=== PATIENT | male | born 1960 | race Caucasian/White ===

== ENCOUNTER 2018-04-01 17:50 | Inpatient (IN) ==
[2018-04-01] MEDS ORDERED: Sod Chloride 0.9% Inj 1,000 ML IV.SIG ONE (18:17)
[2018-04-01] MEDS ORDERED: Morphine Inj 4 MG/ML Vial IV.PUSH ONE ×2 (18:17→21:06)
--- NOTE | 2018-04-01 18:25 | ED ---
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 Symptoms started 2 days ago. He describes it as a generalized sharp pain which is constant, some decreased appetite. He reports that today he had an episode of hematuria. He denies flank pain or back pain. He denies any diarrhea. He reports that he had one small bowel movement today. He has not passed gas today. Symptoms are moderate with no obvious aggravating or relieving factors. His primary care physician is Dr. Foss. He has no other complaints at this time. Related Data Home Medications Medication Instructions Recorded Confirmed multivitamin 1 tab PO DAILY 04/01/18 04/01/18 Allergies Allergy/AdvReac Type Severity Reaction Status Date / Time No Known Allergies Allergy Verified 04/01/18 18:01 Review of Systems ROS: all other systems reviewed are negative [facility] Medical History Medical History No significant medical problems (Acute) Surgical History Surgical History H/O splenectomy (Acute) Hx of cholecystectomy (Acute) Social History Social History Substance History: No History of Abuse Second Hand Smoke Exposure: No Smoking Status: Never smoker How Often Do You Have a Drink Containing Alcohol: Monthly or less Recent Travel in [facility] within the Last 8 Weeks: No Recent Out of Country Travel within the Last 8 Weeks: No Immunization History Tetanus Immunization: >5 Years Exam Narrative Exam Narrative: GENERAL: Well-developed well-nourished male who appears uncomfortable on initial examination. SKIN: Warm and dry. Midline abdominal surgical scars noted. HEAD: Atraumatic. Normocephalic. EYES: Pupils equal and round. No scleral icterus. No injection or drainage. ENT: No nasal bleeding or discharge. Mucous membranes pink and moist. NECK: Trachea midline. No JVD. CARDIOVASCULAR: Regular rate and rhythm. No murmur appreciated. RESPIRATORY: No accessory muscle use. Clear to auscultation. Breath sounds equal bilaterally. GASTROINTESTINAL: Abdomen soft, diffuse mild tenderness to palpation no guarding. Bowel sounds are present in all 4 quadrants. There is no CVA tenderness. MUSCULOSKELETAL: No obvious deformities. No clubbing. No cyanosis. No edema. NEUROLOGICAL: Awake and alert. No obvious cranial nerve deficits. Motor grossly within normal limits. Normal speech. Course Initial Documented Vital Signs Temperature 98.4 F 04/01/18 17:58 Pulse Rate 91 H 04/01/18 17:58 Respiratory Rate 16 04/01/18 17:58 Blood Pressure 111/77 04/01/18 17:58 Pulse Oximetry 98 04/01/18 17:58 Last Documented Vital Signs Temperature 98.4 F 04/01/18 17:58 Pulse Rate 91 H 04/01/18 17:58 Respiratory Rate 16 04/01/18 18:26 Blood Pressure 111/77 04/01/18 17:58 Pulse Oximetry 98 04/01/18 17:58 Medical Decision Making AZALIA Attestation AZALIA supervised visit: Yes Attestation: The history, exam, and medical decision-making in the associated mid-level provider note were completed with my assistance. I reviewed and agree with the findings presented. I attest that I had a [id number] encounter with the patient on the same day, and personally performed and documented my assessment and findings in the medical record. *My assessment and Findings: 57-year-old man, history of major abdominal surgery and bowel obstruction the past, here with abdominal pain and distention ongoing for the past couple days, decreased appetite, no vomiting here. Looks overall well. CT scan confirms bowel obstruction. Recommend sips and chips, IV fluids, defer NG tube for now, may need if he does not rapidly improve. [facility] Narrative Medical decision making narrative: Patient was placed on ECG monitoring pulse oximetry. He was given IV fluids, morphine, Zofran. Lab work, CT abdomen and pelvis ordered. Lab work is been reviewed, reassuring. He does have a small bowel obstruction on imaging studies. He has had no vomiting during his hospital stay. he feels improved after the administration of IV analgesics and antiemetics. At this point time the plan would be to admit the patient to the hospitalist for further evaluation and treatment. Medical Screen Exam Complete: Yes Emergency Medical Condition: Yes Differential Diagnosis Differential Diagnosis: Small bowel obstruction, colitis, diverticulitis, gastroenteritis, pancreatitis, pyelonephritis, ureteral stone Lab Data Result diagrams: 04/01/18 18:00 04/01/18 18:00 Lab Results 04/01/18 04/01/18 04/01/18 Range/Units 18:00 18:00 18:00 WBC 8.6 (4.0-11.0) th/mm3 RBC 4.59 (4.50-5.90) mil/mm3 Hgb 16.2 (13.0-17.0) gm/dL Hct 45.4 (39.0-51.0) % MCV 98.9 (80.0-100.0) fL MCH 35.2 H (27.0-34.0) pg MCHC 35.6 (32.0-36.0) % RDW 12.7 (11.6-17.2) % Plt Count 321 (150-450) th/mm3 MPV 8.0 (7.0-11.0) fL Neut % (Auto) 64.0 (16.0-70.0) % Lymph % (Auto) 22.2 (9.0-44.0) % [place] % (Auto) 12.7 H (0.0-8.0) % Eos % (Auto) 0.6 (0.0-4.0) % Baso % (Auto) 0.5 (0.0-2.0) % Neut # (Auto) 5.5 (1.8-7.7) th/mm3 Lymph # (Auto) 1.9 (1.0-4.8) th/mm3 [place] # (Auto) 1.1 H (0.0-0.9) th/mm3 Eos # (Auto) 0.1 (0.0-0.4) th/mm3 Baso # (Auto) 0.0 (0.0-0.2) th/mm3 WBC Differential . Differential Comment Auto diff final PT 10.8 (9.8-11.6) sec INR 1.1 Ratio APTT 25.2 (24.3-30.1) sec Sodium 139 (136-145) meq/L Potassium 3.8 (3.5-5.1) meq/L Chloride 107 (98-107) meq/L Carbon Dioxide 22.1 (21.0-32.0) meq/L Anion Gap 10 (5-15) meq/L BUN 16 (7-18) mg/dL Creatinine 1.01 (0.60-1.30) mg/dL Estimated GFR 76 L (>89) mL/min Random Glucose 113 H (74-106) mg/dL Calcium 8.7 (8.5-10.1) mg/dL Magnesium 1.8 (1.5-2.5) mg/dL Total Bilirubin 1.0 (0.2-1.0) mg/dL AST 18 (15-37) U/L ALT 45 (12-78) U/L Alkaline Phosphatase 49 (45-117) U/L Total Protein 8.0 (6.4-8.2) g/dL Albumin 3.9 (3.4-5.0) g/dL Lipase 78 (73-393) U/L Urine Color (Yellw/Straw) Urine Clarity (Clear) Urine pH (5.0-8.5) Ur Specific [place] (1.002-1.035) Urine Protein (Neg-Trace) mg/dL Urine Glucose (UA) (Negative) mg/dL Urine Ketones (Negative) mg/dL Urine Occult Blood (Negative) Urine Nitrate (Negative) Urine Bilirubin (Negative) Urine Urobilinogen (Less than 2) mg/dL Ur Leukocyte Esterase (Negative) Urine RBC (0-3) /hpf Urine WBC (0-5) /hpf Hyaline Casts (0-3) /lpf Urine Mucus (Occasional) /lpf Micro UA Comment Ur Microscopic Review Urine Culture Comments 04/01/18 Range/Units 19:35 WBC (4.0-11.0) th/mm3 RBC (4.50-5.90) mil/mm3 Hgb (13.0-17.0) gm/dL Hct (39.0-51.0) % MCV (80.0-100.0) fL MCH (27.0-34.0) pg MCHC (32.0-36.0) % RDW (11.6-17.2) % Plt Count (150-450) th/mm3 MPV (7.0-11.0) fL Neut % (Auto) (16.0-70.0) % Lymph % (Auto) (9.0-44.0) % [place] % (Auto) (0.0-8.0) % Eos % (Auto) (0.0-4.0) % Baso % (Auto) (0.0-2.0) % Neut # (Auto) (1.8-7.7) th/mm3 Lymph # (Auto) (1.0-4.8) th/mm3 [place] # (Auto) (0.0-0.9) th/mm3 Eos # (Auto) (0.0-0.4) th/mm3 Baso # (Auto) (0.0-0.2) th/mm3 WBC Differential Differential Comment PT (9.8-11.6) sec INR Ratio APTT (24.3-30.1) sec Sodium (136-145) meq/L Potassium (3.5-5.1) meq/L Chloride (98-107) meq/L Carbon Dioxide (21.0-32.0) meq/L Anion Gap (5-15) meq/L BUN (7-18) mg/dL Creatinine (0.60-1.30) mg/dL Estimated GFR (>89) mL/min Random Glucose (74-106) mg/dL Calcium (8.5-10.1) mg/dL Magnesium (1.5-2.5) mg/dL Total Bilirubin (0.2-1.0) mg/dL AST (15-37) U/L ALT (12-78) U/L Alkaline Phosphatase (45-117) U/L Total Protein (6.4-8.2) g/dL Albumin (3.4-5.0) g/dL Lipase (73-393) U/L Urine Color [place] (Yellw/Straw) Urine Clarity Hazy H (Clear) Urine pH 5.0 (5.0-8.5) Ur Specific [place] 1.034 (1.002-1.035) Urine Protein 30 H (Neg-Trace) mg/dL Urine Glucose (UA) Negative (Negative) mg/dL Urine Ketones 80 or greater H (Negative) mg/dL Urine Occult Blood Negative (Negative) Urine Nitrate Negative (Negative) Urine Bilirubin Negative (Negative) Urine Urobilinogen 4 or greater (Less than 2) mg/dL Ur Leukocyte Esterase Negative (Negative) Urine RBC 1 (0-3) /hpf Urine WBC 4 (0-5) /hpf Hyaline Casts 1 (0-3) /lpf Urine Mucus Many H (Occasional) /lpf Micro UA Comment Culture not ind Ur Microscopic Review Not Reportable Urine Culture Comments Culture not ind Imaging Data Radiologist's impression: Abdomen/Pelvis CT 04/01/18 18:18 CONCLUSION: 1. Distal small bowel obstruction just proximal to the terminal ileum without obstructing mass or lesion observed. No free air or free fluid. 2. Enlarged prostate. 3. Prior splenomegaly with numerous small splenules remaining. Discharge Plan Discharge Disposition Patient Disposition: 30 Still Patient Discharge Condition Condition: Stable Discharge Details Diagnosis: Small bowel obstruction Physicians Team ED Provider: Sukh Newberry ED Midlevel Provider: Zachary Mcgregor Primary Care Provider: Tom Foss Attending Provider: Yoana Mei Status ED Status: Admitted Patient
[2018-04-01 18:43] LABS: Baso % (Auto) 0.5 % (0.0-2.0); Eos # (Auto) 0.1 th/mm3 (0.0-0.4); Eos % (Auto) 0.6 % (0.0-4.0); Hematocrit 45.4 % (39.0-51.0); Hemoglobin 16.2 gm/dL (13.0-17.0); Lymph # (Auto) 1.9 th/mm3 (1.0-4.8); Lymph % (Auto) 22.2 % (9.0-44.0); Mean Corpuscular HGB Conc 35.6 % (32.0-36.0); Mean Corpuscular Hemoglobin 35.2 pg (27.0-34.0); Mean Corpuscular Volume 98.9 fL (80.0-100.0); Mono # (Auto) 1.1 th/mm3 (0.0-0.9); Mono % (Auto) 12.7 % (0.0-8.0); Neut # (Auto) 5.5 th/mm3 (1.8-7.7); Platelet Count 321 th/mm3 (150-450); Red Blood Count 4.59 mil/mm3 (4.50-5.90); Red Cell Distribution Width 12.7 % (11.6-17.2); White Blood Count 8.6 th/mm3 (4.0-11.0)
[2018-04-01 18:58] LABS: Activated Partial Thrombo Time 25.2 sec (24.3-30.1); INR 1.1 Ratio; Prothrombin Time 10.8 sec (9.8-11.6)
[2018-04-01 19:05] LABS: Albumin 3.9 g/dL (3.4-5.0); Anion Gap 10 meq/L (5-15); Aspartate Aminotransferase 18 U/L (15-37); Blood Urea Nitrogen 16 mg/dL (7-18); Calcium 8.7 mg/dL (8.5-10.1); Carbon Dioxide 22.1 meq/L (21.0-32.0); Chloride 107 meq/L (98-107); Glomerular Filtration Rate 76 mL/min (>89); Glucose,Random 113 mg/dL (74-106); Lipase 78 U/L (73-393); Magnesium 1.8 mg/dL (1.5-2.5); Potassium 3.8 meq/L (3.5-5.1); Sodium 139 meq/L (136-145)
[2018-04-01 19:06] LABS: Alanine Aminotransferase 45 U/L (12-78)
[2018-04-01 19:08] LABS: Alkaline Phosphatase 49 U/L (45-117)
[2018-04-01 19:57] LABS: Bilirubin,Urine Negative (Negative); Clarity,Urine Hazy (Clear); Color,Urine Amber (Yellw/Straw); Glucose,Urine (UA) Negative (Negative); Hyaline Casts,Urine 1 /lpf (0-3); Leukocyte Esterase,Urine Negative (Negative); Mucus,Urine Many /lpf (Occasional); Nitrite,Urine Negative (Negative); Specific Gravity,Urine 1.034 (1.002-1.035); Urobilinogen,Urine 4 or Greater mg/dL (Less than 2)
--- NOTE | 2018-04-01 20:03 | CT ---
EXAM DATE: 04/01/2018 7:36 PM EDT AGE/SEX: 57 years / Male INDICATIONS: Mid abdominal pain and hematuria for two days. CLINICAL DATA: This is the patient's initial encounter. Patient reports that signs and symptoms have been present for 2 days and indicates a pain score of 9/10. MEDICAL/SURGICAL HISTORY: . Small bowel obstruction. Splenectomy. Cholecystectomy. ORAL CONTRAST: No oral contrast ingested. RADIATION DOSE: 9.56 CTDI (mGy) [place] [facility] [place]. . TECHNIQUE: Multiple contiguous axial images were obtained through the abdomen and pelvis following b olus infusion of 70 ml Omnipaque 350 (iohexol) nonionic water-soluble contrast as a single exam dos e. No oral contrast ingested. Using automated exposure control and adjustment of the mA and/or kV ac cording to patient size, radiation dose was kept as low as reasonably achievable to obtain optimal di agnostic quality images. DICOM format image data is available electronically for review and comparis on. FINDINGS: Lower Lungs: Mild bibasilar atelectasis.. Liver: The liver has a homogeneous density without space-occupying lesion. Very mild prominence to th e intrahepatic biliary system particularly near the kimi hepatis is long-term stable. No gross bilia ry dilatation.. The gallbladder is surgically absent. Spleen: Multiple small splenules with a surgically absent spleen.. Pancreas: Unremarkable without mass or calcification. Kidneys: Normal in size and shape. A 2 mm nonobstructing stone involving the upper pole of the left kidney. No evidence of mass or hydronephrosis. Adrenal Glands: Unremarkable. Aorta: The aorta and proximal iliac vessels are grossly unremarkable without aneurysmal dilation. Bowel/Mesentery: Dilated loops of mid and distal small bowel observed. There is circumferential wall thickening involving several these loops as well. There is slow tapering of the distal ileum but pro ximal to the terminal ileum. No obstructing mass or lesion appreciated. The surrounding mesenteric fa t is clean. The appendix is normal by CT criteria. The colon is unremarkable with the exception of sc attered diverticula.. Abdominal Wall: Intact. Retroperitoneum: No evidence of adenopathy in the retrocrural, para-aortic, or deep pelvic regions. Bladder: No distention. No stones. Contours are smooth. Reproductive Organs: A grossly enlarged prostate gland which measures 6.7 cm in medial to lateral di mension.. Inguinal: The inguinal region is unremarkable without evidence of adenopathy. Bony Structures: Unremarkable. CONCLUSION: 1. Distal small bowel obstruction just proximal to the terminal ileum without obstructing mass or le carroll observed. No free air or free fluid. 2. Enlarged prostate. 3. Prior splenomegaly with numerous small splenules remaining. Electronically signed by: Nir Majano MD 04/01/2018 8:01 PM EDT
[2018-04-01] MEDS ORDERED: Sodium Chloride 0.9% 2 ML Flush PRN IV.FLUSH (21:35)
[2018-04-01] MEDS ORDERED: Morphine Sulfate Inj 2 MG/ML Vial IV.PUSH PRN (22:47)
--- NOTE | 2018-04-01 22:50 | P.HPIM ---
History of Present Illness Service: [facility] Primary Care Physician: Tom Foss DO Chief Complaint: Abdominal pain History of Present Illness: 57-year-old male with no medical history surgical history includes a splenectomy and a cholecystectomy and a small bowel obstruction in 2011 presented to the ED with complaints of abdominal pain. Patient states for the last 2 days he has had sharp, stabbing, constant abdominal pain throughout his whole abdomen with associated decreased appetite. He denies any associated nausea or vomiting or radiation pain. He states the pain is better with morphine. He states he had a very small bowel movement today but prior to today he has had liquid stools. He has had a bowel small bowel obstruction in the past that included intervention for lysis of adhesions. He also states he has not been drinking water lately and complains of very dark urine. Inpatient Certification: I certify that the inpatient services were ordered in accordance with Medicare regulations governing the order. This includes certification that hospital inpatient services are reasonable and necessary and in the case of services not specified as inpatient-only under 42 CFR 419.22(n), that they are appropriately provided as inpatient services in accordance to with the 2-midnight benchmark under 43 CFR 412.3(e) Estimated Total Length of Stay (Days): 2 Plans for Post Hospital Care: Home Review of Systems All other systems reviewed negative except as stated in HPI PMFSH - History History Provided By: Patient - Medical History Medical History: Medical History (Last Reviewed 04/01/18 @ 22:49 by ENID Brady) No significant medical problems - Surgical History Surgical History: Surgical History (Last Reviewed 04/01/18 @ 22:49 by ENID Brady) H/O splenectomy Hx of cholecystectomy - Family History Family History: Family History (Last Reviewed 04/01/18 @ 22:49 by ENID Brady) Other Family history normal - Social History I have reviewed the patient's Social History: Yes - Tobacco History Second Hand Smoke Exposure: No Smoking Status: Never smoker - Alcohol History How Often Do You Have a Drink Containing Alcohol: Monthly or less - Substance Use History Substance History: No History of Abuse - Travel History Recent Travel in the [place] Within the Last 8 Weeks: No Recent Travel Out of the Country Within the Last 8 Weeks: No - Immunization History Tetanus Immunization: >5 Years Medications and Allergies Active Medications: Active Medications Sodium Chloride (Ns Inj) 1,000 mls @ 100 mls/hr IV.CONT .Q10H BEV Ondansetron HCl (Zofran Inj) 4 mg IV.PUSH Q6H PRN PRN Reason: NAUSEA OR VOMITING Sodium Chloride (Ns Flush) 2 ml IV.FLUSH BID BEV Sodium Chloride (Ns Flush) 2 ml IV.FLUSH PRN PRN PRN Reason: FLUSH AFTER USING IV ACCESS Allergies Allergy/AdvReac Type Severity Reaction Status Date / Time No Known Allergies Allergy Verified 04/01/18 18:01 Home Medications Medication Instructions Recorded Confirmed Type multivitamin 1 tab PO DAILY 04/01/18 04/01/18 History Exam Vital signs: Vital Signs 04/01/18 17:58 04/01/18 18:26 Temperature 98.4 F Pulse Rate 91 H Respiratory Rate 16 16 Blood Pressure 111/77 Pulse Oximetry 98 Intake & Output 04/01/18 04/01/18 04/02/18 06:59 18:59 06:59 Intake Total 1000 / 1000 Balance 1000 / 1000 Weight 78.018 kg Intake: IV 1000 / 1000 NS Inj 1,000 ML @ Wide Open IV. 1000 / 1000 SIG BOLUS ONE Rx#:[id number] Narrative: GENERAL: This is a well-nourished, well-developed patient, in no apparent distress. SKIN: Warm, dry, intact, no ecchymosis or open lesions EYES: Pupils equal round and reactive, no scleral edema or drainage CARDIOVASCULAR: Regular rate and rhythm without murmurs, gallops, or rubs. RESPIRATORY: Clear to auscultation. Breath sounds equal bilaterally. No wheezes , rales, or rhonchi. GASTROINTESTINAL: Abdomen soft, umbilical tenderness, nondistended. hypo BS MUSCULOSKELETAL: Extremities without clubbing, cyanosis, or edema. NEURO: Alert & Oriented x4 to person, place, time, situation. Moves all ext x4 Results - Labs CBC & Chem 7: 04/01/18 18:00 04/01/18 18:00 Labs: Short CBC 04/01/18 Range/Units 18:00 WBC 8.6 (4.0-11.0) th/mm3 Hgb 16.2 (13.0-17.0) gm/dL Hct 45.4 (39.0-51.0) % Plt Count 321 (150-450) th/mm3 BMP 04/01/18 18:00 Sodium 139 Potassium 3.8 Chloride 107 Carbon Dioxide 22.1 BUN 16 Creatinine 1.01 Calcium 8.7 Liver Function 04/01/18 Range/Units 18:00 Total Bilirubin 1.0 (0.2-1.0) mg/dL AST 18 (15-37) U/L ALT 45 (12-78) U/L Alkaline Phosphatase 49 (45-117) U/L Albumin 3.9 (3.4-5.0) g/dL Urine 04/01/18 Range/Units 19:35 Urine Color [place] (Yellw/Straw) Urine Clarity Hazy H (Clear) Urine pH 5.0 (5.0-8.5) Ur Specific [place] 1.034 (1.002-1.035) Urine Protein 30 H (Neg-Trace) mg/dL Urine Glucose (UA) Negative (Negative) mg/dL - Imaging Impressions Abdomen/Pelvis CT 04/01/18 18:18 CONCLUSION: 1. Distal small bowel obstruction just proximal to the terminal ileum without obstructing mass or lesion observed. No free air or free fluid. 2. Enlarged prostate. 3. Prior splenomegaly with numerous small splenules remaining. Caprini VTE Risk Assessment Caprini VTE Risk Assessment: No/Low Risk (score <= 1) Caprini Risk Assessment Model: Point Value = 1 Point Value = 2 Point Value = 3 Point Value = 5 Age 41-60 Minor surgery BMI > 25 kg/m2 Swollen legs Varicose veins or History of unexplained or recurrent spontaneous Oral contraceptives or hormone replacement Sepsis (< 1 month) Serious lung disease, including pneumonia (< 1 month) Abnormal pulmonary function Acute myocardial infarction Congestive heart failure (< 1 month) History of inflammatory bowel disease Medical patient at bed rest Age 61-74 Arthroscopic surgery Major open surgery (> 45 min) Laparoscopic surgery (> 45 min) Malignancy Confined to bed (> 72 hours) Immobilizing plaster cast Central venous access Age >= 75 History of VTE Family history of VTE Factor V Leiden Prothrombin [id number] Lupus anticoagulant Anticardiolipin antibodies Elevated serum homocysteine Heparin-induced thrombocytopenia Other congenital or acquired thrombophilia Stroke (< 1 month) Elective arthroplasty Hip, pelvis, or leg fracture Acute spinal cord injury (< 1 month) Prophylaxis Regimen: Total Risk Factor Score Risk Level Prophylaxis Regimen 0-1 Low Early ambulation 2 Moderate Order ONE of the following: *Sequential Compression Device (SCD) *Heparin 5000 units SQ BID 3-4 Higher Order ONE of the following medications: *Heparin 5000 units SQ TID *Enoxaparin/Lovenox 40 mg SQ daily (WT < 150 kg, CrCl > 30 mL/min) *Enoxaparin/Lovenox 30 mg SQ daily (WT < 150 kg, CrCl > 10-29 mL/min) *Enoxaparin/Lovenox 30 mg SQ BID (WT < 150 kg, CrCl > 30 mL/min) AND/OR *Sequential Compression Device (SCD) 5 or more Highest Order ONE of the following medications: *Heparin 5000 units SQ TID (Preferred with Epidurals) *Enoxaparin/Lovenox 40 mg SQ daily (WT < 150 kg, CrCl > 30 mL/min) *Enoxaparin/Lovenox 30 mg SQ daily (WT < 150 kg, CrCl > 10-29 mL/min) *Enoxaparin/Lovenox 30 mg SQ BID (WT < 150 kg, CrCl > 30 mL/min) AND *Sequential Compression Device (SCD) Assessment and Plan - Plan 57-year-old male with no medical history surgical history includes a splenectomy and a cholecystectomy and a small bowel obstruction in 2011 presented to the ED with complaints of abdominal pain. Small bowel obstruction, acute Abdomen CT reviewed and shows a distal small bowel obstruction just proximal to the terminal ileum without mass, and enlarged prostate. -NPO, IVF -Consult general surgery for evaluation -Educated patient on fibrous diet and hydration -Pain management with IV morphine -Antiemetics as needed DVT Prophylaxis: SCDs Discussed Condition With: Patient, patient's and ER physician
[2018-04-02] MEDS: Sod Chloride 0.9% Inj 1,000 ML IV.CONT SCH ×3 (00:56→18:49)
[2018-04-02] MEDS: Morphine Inj 4 MG/ML Vial IV.PUSH PRN ×4 (01:19→19:51)
[2018-04-02 08:03] LABS: Baso % (Auto) 0.2 % (0.0-2.0); Eos # (Auto) 0.1 th/mm3 (0.0-0.4); Eos % (Auto) 1.5 % (0.0-4.0); Hemoglobin 13.7 gm/dL (13.0-17.0); Lymph # (Auto) 0.9 th/mm3 (1.0-4.8); Lymph % (Auto) 18.6 % (9.0-44.0); Mean Corpuscular HGB Conc 34.3 % (32.0-36.0); Mean Corpuscular Hemoglobin 34.8 pg (27.0-34.0); Mean Corpuscular Volume 101.2 fL (80.0-100.0); Mean Platelet Volume 8.4 fL (7.0-11.0); Mono # (Auto) 0.6 th/mm3 (0.0-0.9); Mono % (Auto) 12.3 % (0.0-8.0); Neut # (Auto) 3.4 th/mm3 (1.8-7.7); Neut % (Auto) 67.4 % (16.0-70.0); Platelet Count 278 th/mm3 (150-450); Red Blood Count 3.95 mil/mm3 (4.50-5.90); Red Cell Distribution Width 12.7 % (11.6-17.2)
--- NOTE | 2018-04-02 08:31 | P.CONGS ---
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 Workup demonstrated findings consistent with a partial small bowel obstruction. The patient has been passing flatus. He had a small bowel movement a day or 2 ago. He has had no nausea with emesis. He had a previous admission and evaluation for small bowel obstruction which resolved with nasogastric tube decompression and no surgery for the bowel obstruction. He has had no prior problems with anesthesia with his surgeries. He feels a little crampy discomfort in his abdomen this morning. He has passed more flatus this morning. Review of Systems The patient denies any known heart or lung disorders. He denies liver or kidney problems. He has had no strokes or seizures. He is never been treated with blood thinning medications. He has had no blood clots. He denies alcohol or tobacco abuse. He has a beer or 2 on the weekends. 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 He has no known chronic family medical problems. [facility] - History History Provided By: Patient - Medical History Medical History: Medical History (Last Reviewed 04/01/18 @ 22:49 by ENID Brady) No significant medical problems - Surgical History Surgical History: Surgical History (Last Reviewed 04/01/18 @ 22:49 by ENID Brady) H/O splenectomy Hx of cholecystectomy - Family History Family History: Family History (Last Reviewed 04/01/18 @ 22:49 by ENID Brady) Other Family history normal - Social History I have reviewed the patient's Social History: Yes - Tobacco History Second Hand Smoke Exposure: No Smoking Status: Never smoker Tobacco Type: Cigarettes - Alcohol History How Often Do You Have a Drink Containing Alcohol: Monthly or less - Substance Use History Substance History: No History of Abuse - Travel History Recent Travel in the [facility] Within the Last 8 Weeks: No Recent Travel Out of the Country Within the Last 8 Weeks: No - Immunization History Tetanus Immunization: >5 Years Medications and Allergies Active Medications: Active Medications Sodium Chloride (Ns Inj) 1,000 mls @ 100 mls/hr IV.CONT .Q10H BEV Last Admin: 04/02/18 00:56 Dose: 100 mls/hr Morphine Sulfate (Morphine Inj) 2 mg IV.PUSH Q3H PRN PRN Reason: pain 1 to 10 Last Admin: 04/02/18 01:19 Dose: 2 mg Ondansetron HCl (Zofran Inj) 4 mg IV.PUSH Q6H PRN PRN Reason: NAUSEA OR VOMITING Sodium Chloride (Ns Flush) 2 ml IV.FLUSH BID BEV Sodium Chloride (Ns Flush) 2 ml IV.FLUSH PRN PRN PRN Reason: FLUSH AFTER USING IV ACCESS Allergies Allergy/AdvReac Type Severity Reaction Status Date / Time No Known Allergies Allergy Verified 04/01/18 18:01 Home Medications Medication Instructions Recorded Confirmed Type multivitamin 1 tab PO DAILY 04/01/18 04/01/18 History Exam Vital signs: Vital Signs 04/01/18 17:58 04/01/18 18:26 04/02/18 00:00 Temperature 98.4 F 98.0 F Pulse Rate 91 H 97 H Respiratory Rate 16 16 16 Blood Pressure 111/77 122/64 Pulse Oximetry 98 98 04/02/18 01:20 04/02/18 04:00 04/02/18 07:57 Temperature 98.0 F 98.4 F Pulse Rate 94 H 86 Respiratory Rate 21 17 18 Blood Pressure 135/60 97/51 L Pulse Oximetry 98 96 Intake & Output 04/01/18 04/02/18 04/02/18 18:59 06:59 18:59 Intake Total 1000 / 1000 Balance 1000 / 1000 Weight 78.018 kg 78.01 kg Intake: IV 1000 / 1000 NS Inj 1,000 ML @ Wide Open IV. 1000 / 1000 SIG BOLUS ONE Rx#:[id number] Other: Weight On Admission 78.01 kg Narrative: Patient is a well-developed well-nourished gentleman who is very pleasant and cooperative the exam. He is awake alert he is oriented. He is in no acute distress. HEENT demonstrates normocephalic atraumatic head. His pupils are 2 round and sluggishly reactive to light and his sclera are anicteric. His oropharynx is clear without mucosal lesions. He has good dentition. His neck is supple without adenopathy. He has no carotid bruits. He has no jugular venous distention. He has no palpable cervical lymphadenopathy and no palpable thyromegaly. His lung sounds are clear to auscultation anteriorly bilaterally. His heart sounds are regular without obvious murmur rub or gallop. His abdomen is soft and nondistended. He has few normal bowel sounds. He has a healed upper midline incision from exploratory laparotomy and splenectomy. He has a tiny incisions in the right upper quadrant from laparoscopic cholecystectomy. There is no evidence on my exam of ventral incisional hernias. Genital and rectal exams were not repeated. His extremities are muscular. He has no cyanosis clubbing or edema. Is equal bilateral radial and dorsalis pedis pulses. Neurologically he is awake alert, oriented. He has equal strong bilateral dye can operator strength. He has no gross motor or sensory deficits. Results - Labs 04/02/18 06:25 04/01/18 18:00 Laboratory Results - last 24 hr 04/01/18 04/01/18 04/01/18 18:00 18:00 18:00 WBC 8.6 RBC 4.59 Hgb 16.2 Hct 45.4 MCV 98.9 MCH 35.2 H MCHC 35.6 RDW 12.7 Plt Count 321 MPV 8.0 Neut % (Auto) 64.0 Lymph % (Auto) 22.2 [place] % (Auto) 12.7 H Eos % (Auto) 0.6 Baso % (Auto) 0.5 Neut # (Auto) 5.5 Lymph # (Auto) 1.9 [place] # (Auto) 1.1 H Eos # (Auto) 0.1 Baso # (Auto) 0.0 WBC Differential . Differential Comment Auto diff final PT 10.8 INR 1.1 APTT 25.2 Sodium 139 Potassium 3.8 Chloride 107 Carbon Dioxide 22.1 Anion Gap 10 BUN 16 Creatinine 1.01 Estimated GFR 76 L Random Glucose 113 H Calcium 8.7 Magnesium 1.8 Total Bilirubin 1.0 AST 18 ALT 45 Alkaline Phosphatase 49 Total Protein 8.0 Albumin 3.9 Lipase 78 Urine Color Urine Clarity Urine pH Ur Specific [place] Urine Protein Urine Glucose (UA) Urine Ketones Urine Occult Blood Urine Nitrate Urine Bilirubin Urine Urobilinogen Ur Leukocyte Esterase Urine RBC Urine WBC Hyaline Casts Urine Mucus Micro UA Comment Ur Microscopic Review Urine Culture Comments 04/01/18 04/02/18 19:35 06:25 WBC 5.0 RBC 3.95 L Hgb 13.7 D Hct 40.0 MCV 101.2 H MCH 34.8 H MCHC 34.3 RDW 12.7 Plt Count 278 MPV 8.4 Neut % (Auto) 67.4 Lymph % (Auto) 18.6 [place] % (Auto) 12.3 H Eos % (Auto) 1.5 Baso % (Auto) 0.2 Neut # (Auto) 3.4 Lymph # (Auto) 0.9 L [place] # (Auto) 0.6 Eos # (Auto) 0.1 Baso # (Auto) 0.0 WBC Differential . Differential Comment Auto diff final PT INR APTT Sodium Potassium Chloride Carbon Dioxide Anion Gap BUN Creatinine Estimated GFR Random Glucose Calcium Magnesium Total Bilirubin AST ALT Alkaline Phosphatase Total Protein Albumin Lipase Urine Color [place] Urine Clarity Hazy H Urine pH 5.0 Ur Specific [place] 1.034 Urine Protein 30 H Urine Glucose (UA) Negative Urine Ketones 80 or greater H Urine Occult Blood Negative Urine Nitrate Negative Urine Bilirubin Negative Urine Urobilinogen 4 or greater Ur Leukocyte Esterase Negative Urine RBC 1 Urine WBC 4 Hyaline Casts 1 Urine Mucus Many H Micro UA Comment Culture not ind Ur Microscopic Review Not Reportable Urine Culture Comments Culture not ind - Imaging Imaging: ITS Impressions Abdomen/Pelvis CT 04/01/18 18:18 CONCLUSION: 1. Distal small bowel obstruction just proximal to the terminal ileum without obstructing mass or lesion observed. No free air or free fluid. 2. Enlarged prostate. 3. Prior splenomegaly with numerous small splenules remaining. Assessment and Plan - Assessment (1) Partial small bowel obstruction Code(s): K56.600 - Partial intestinal obstruction, unspecified as to cause Status: Acute - Plan At this time the patient does not have any nausea or emesis. He is passing some flatus. His abdomen is nondistended. I discussed with him a follow-up flat and upright x-ray of the abdomen and a trial of clear liquids. I think there is a good chance he may resolve this episode without surgical therapy. We did talk about diagnostic laparoscopy, laparoscopic adhesio lysis, exploratory laparotomy with adhesio lysis, and possible small bowel obstruction surgical options for treatment of small bowel obstruction due to adhesions which is the most likely etiology for his current condition. We will follow along closely. Flat and upright x-rays of the abdomen and clear liquids have been ordered. Code Status: Full code Discussed Condition With: Patient
[2018-04-02 08:36] LABS: Anion Gap 7 meq/L (5-15); Blood Urea Nitrogen 12 mg/dL (7-18); Calcium 7.9 mg/dL (8.5-10.1); Carbon Dioxide 25.1 meq/L (21.0-32.0); Chloride 110 meq/L (98-107); Glomerular Filtration Rate Greater Than 89 mL/min (>89); Glucose,Random 103 mg/dL (74-106); Sodium 142 meq/L (136-145)
[2018-04-02 08:37] LABS: Potassium 4.1 meq/L (3.5-5.1)
[2018-04-02] MEDS: Sodium Chloride 0.9% 2 ML Flush BID IV.FLUSH SCH ×2 (09:35→22:07)
--- NOTE | 2018-04-02 10:02 | P.PN ---
Physical Exam Vital signs: Vital Signs 04/01/18 17:58 04/01/18 18:26 04/02/18 00:00 Temperature 98.4 F 98.0 F Pulse Rate 91 H 97 H Respiratory Rate 16 16 16 Blood Pressure 111/77 122/64 Pulse Oximetry 98 98 04/02/18 01:20 04/02/18 04:00 04/02/18 07:57 Temperature 98.0 F 98.4 F Pulse Rate 94 H 86 Respiratory Rate 21 17 18 Blood Pressure 135/60 97/51 L Pulse Oximetry 98 96 Intake & Output 04/01/18 04/02/18 04/02/18 18:59 06:59 18:59 Intake Total 1000 / 1000 1000 / 1000 Balance 1000 / 1000 1000 / 1000 Weight 78.018 kg 78.01 kg Intake: IV 1000 / 1000 1000 / 1000 NS Inj 1,000 ML @ 100 mls/hr IV 1000 / 1000 .CONT .Q10H BEV Rx#:[id number] NS Inj 1,000 ML @ Wide Open IV. 1000 / 1000 SIG BOLUS ONE Rx#:[id number] Other: Weight On Admission 78.01 kg Narrative: GENERAL: This is a pleasant well-nourished, well-developed patient, in no apparent distress. CARDIOVASCULAR: Regular rate and rhythm without murmurs, gallops, or rubs. RESPIRATORY: Clear to auscultation. Breath sounds equal bilaterally. No wheezes , rales, or rhonchi. GASTROINTESTINAL: Abdomen soft, diffuse tenderness, nondistended. MUSCULOSKELETAL: Extremities without clubbing, cyanosis, or edema. NEURO: Alert & Oriented x4 to person, place, time, situation. Moves all ext x4 Results - Labs CBC & Chem 7: 04/02/18 06:25 04/02/18 06:25 Laboratory Results - last 24 hr 04/01/18 04/01/18 04/01/18 18:00 18:00 18:00 WBC 8.6 RBC 4.59 Hgb 16.2 Hct 45.4 MCV 98.9 MCH 35.2 H MCHC 35.6 RDW 12.7 Plt Count 321 MPV 8.0 Neut % (Auto) 64.0 Lymph % (Auto) 22.2 [place] % (Auto) 12.7 H Eos % (Auto) 0.6 Baso % (Auto) 0.5 Neut # (Auto) 5.5 Lymph # (Auto) 1.9 [place] # (Auto) 1.1 H Eos # (Auto) 0.1 Baso # (Auto) 0.0 WBC Differential . Differential Comment Auto diff final PT 10.8 INR 1.1 APTT 25.2 Sodium 139 Potassium 3.8 Chloride 107 Carbon Dioxide 22.1 Anion Gap 10 BUN 16 Creatinine 1.01 Estimated GFR 76 L Random Glucose 113 H Calcium 8.7 Magnesium 1.8 Total Bilirubin 1.0 AST 18 ALT 45 Alkaline Phosphatase 49 Total Protein 8.0 Albumin 3.9 Lipase 78 Urine Color Urine Clarity Urine pH Ur Specific [place] Urine Protein Urine Glucose (UA) Urine Ketones Urine Occult Blood Urine Nitrate Urine Bilirubin Urine Urobilinogen Ur Leukocyte Esterase Urine RBC Urine WBC Hyaline Casts Urine Mucus Micro UA Comment Ur Microscopic Review Urine Culture Comments 04/01/18 04/02/18 04/02/18 19:35 06:25 06:25 WBC 5.0 RBC 3.95 L Hgb 13.7 D Hct 40.0 MCV 101.2 H MCH 34.8 H MCHC 34.3 RDW 12.7 Plt Count 278 MPV 8.4 Neut % (Auto) 67.4 Lymph % (Auto) 18.6 [place] % (Auto) 12.3 H Eos % (Auto) 1.5 Baso % (Auto) 0.2 Neut # (Auto) 3.4 Lymph # (Auto) 0.9 L [place] # (Auto) 0.6 Eos # (Auto) 0.1 Baso # (Auto) 0.0 WBC Differential . Differential Comment Auto diff final PT INR APTT Sodium 142 Potassium 4.1 Chloride 110 H Carbon Dioxide 25.1 Anion Gap 7 BUN 12 Creatinine 0.77 Estimated GFR Greater than 89 Random Glucose 103 Calcium 7.9 L D Magnesium Total Bilirubin AST ALT Alkaline Phosphatase Total Protein Albumin Lipase Urine Color [place] Urine Clarity Hazy H Urine pH 5.0 Ur Specific [place] 1.034 Urine Protein 30 H Urine Glucose (UA) Negative Urine Ketones 80 or greater H Urine Occult Blood Negative Urine Nitrate Negative Urine Bilirubin Negative Urine Urobilinogen 4 or greater Ur Leukocyte Esterase Negative Urine RBC 1 Urine WBC 4 Hyaline Casts 1 Urine Mucus Many H Micro UA Comment Culture not ind Ur Microscopic Review Not Reportable Urine Culture Comments Culture not ind - Imaging Impressions Abdomen/Pelvis CT 04/01/18 18:18 CONCLUSION: 1. Distal small bowel obstruction just proximal to the terminal ileum without obstructing mass or lesion observed. No free air or free fluid. 2. Enlarged prostate. 3. Prior splenomegaly with numerous small splenules remaining. Assessment and Plan - Plan 57-year-old male with no medical history surgical history includes a splenectomy and a cholecystectomy and a small bowel obstruction in 2011 presented to the ED with complaints of abdominal pain. Small bowel obstruction, acute likely 2/[address] reviewed and shows a distal small bowel obstruction just proximal to the terminal ileum without mass, and enlarged prostate. -Cont IVF -Consult general surgery for evaluation -Educated patient on fibrous diet and hydration -Pain management with IV morphine -Antiemetics as needed -Flat and upright x-rays of the abdomen and clear liquids per surgeon recommendations. No surgical intervention recommended at this time. DVT Prophylaxis: SCDs Discussed Condition With: Patient, nurse DC when improves and cleared by surgeon.
--- NOTE | 2018-04-02 14:21 | XR ---
EXAM DATE: 04/02/2018 12:00 AM EDT AGE/SEX: 57 years / Male INDICATIONS: Evaluate for obstruction; Constipation for 3 days. CLINICAL DATA: This is the patient's subsequent encounter. Patient reports that signs and symptoms h ave been present for 3 days and indicates a pain score of 5/10. MEDICAL/SURGICAL HISTORY: . Previous small bowel obstruction Cholecystectomy. Splenectomy. COMPARISON: [facility] [place], CT ABDOMEN & PELVIS W CONTRAST, 04/01/2018. . FINDINGS: Supine and upright views of the abdomen were performed. The abdominal bowel gas pattern is nonspecifi c with some air-filled moderately dilated loops of small bowel. The colon is nondistended. There is s ome stool in the colon. There are some air-fluid levels noted on the upright study. No definite free air is demonstrated. These findings correlate with the recent CT scan of the abdomen/pelvis. There ar e some mild degenerative changes involving the bony structures. There appears to be an old appearing compression fracture injury at L4.. The lung bases are grossly clear. There is evidence of a previous cholecystectomy. CONCLUSION: There are moderately distended loops of small bowel with air-fluid levels throughout the mid abdomen. This finding can be seen with either diffuse adynamic ileus versus a distal partial small bowel obst ruction. Electronically signed by: Anderson Shane MD 04/02/2018 2:19 PM EDT
--- NOTE | 2018-04-02 17:44 | P.PN ---
Subjective Interval history: Follow-up on patient with small bowel obstruction. Patient seen and examined. Patient states he has been tolerating his clear liquid diet. He does report some mild nausea following lunch today. He denies any episodes of emesis. He denies any bowel movement but states his stomach is gurgling and he is passing flatus. He denies any fever or chills. Physical Exam Vital signs: Vital Signs 04/01/18 17:58 04/01/18 18:26 04/02/18 00:00 Temperature 98.4 F 98.0 F Pulse Rate 91 H 97 H Respiratory Rate 16 16 16 Blood Pressure 111/77 122/64 Pulse Oximetry 98 98 04/02/18 01:20 04/02/18 04:00 04/02/18 07:57 Temperature 98.0 F 98.4 F Pulse Rate 94 H 86 Respiratory Rate 21 17 18 Blood Pressure 135/60 97/51 L Pulse Oximetry 98 96 04/02/18 11:59 04/02/18 16:31 Temperature 98.5 F 97.8 F Pulse Rate 90 75 Respiratory Rate 18 20 Blood Pressure 116/56 L 112/59 L Pulse Oximetry 95 96 Intake & Output 04/01/18 04/02/18 04/02/18 18:59 06:59 18:59 Intake Total 1000 / 1000 1000 / 1000 Balance 1000 / 1000 1000 / 1000 Weight 78.018 kg 78.01 kg Intake: IV 1000 / 1000 1000 / 1000 NS Inj 1,000 ML @ 100 mls/hr IV 1000 / 1000 .CONT .Q10H BEV Rx#:[id number] NS Inj 1,000 ML @ Wide Open IV. 1000 / 1000 SIG BOLUS ONE Rx#:[id number] Other: Weight On Admission 78.01 kg Narrative: GENERAL: Well-developed well-nourished male patient in no acute distress. Awake and alert. is at the bedside. SKIN: Warm and dry. HEENT: Atraumatic. Normocephalic. Pupils equal and round. No scleral icterus. No injection or drainage. No nasal bleeding or discharge. Mucous membranes pink and moist. NECK: Trachea midline. CARDIOVASCULAR: Regular rate and rhythm. RESPIRATORY: No accessory muscle use. Clear to auscultation. Breath sounds equal bilaterally. GASTROINTESTINAL: Abdomen soft, non-tender, nondistended. +BS. MUSCULOSKELETAL: Extremities without clubbing, cyanosis, or edema. No obvious deformities. NEUROLOGICAL: Awake and alert. No obvious cranial nerve deficits. Motor grossly within normal limits. Able to move all extremities spontaneously. Normal speech. PSYCHIATRIC: Appropriate mood and affect; insight and judgment normal. Results - Labs CBC & Chem 7: 04/02/18 06:25 04/02/18 06:25 Laboratory Results - last 24 hr 04/01/18 04/01/18 04/01/18 18:00 18:00 18:00 WBC 8.6 RBC 4.59 Hgb 16.2 Hct 45.4 MCV 98.9 MCH 35.2 H MCHC 35.6 RDW 12.7 Plt Count 321 MPV 8.0 Neut % (Auto) 64.0 Lymph % (Auto) 22.2 [place] % (Auto) 12.7 H Eos % (Auto) 0.6 Baso % (Auto) 0.5 Neut # (Auto) 5.5 Lymph # (Auto) 1.9 [place] # (Auto) 1.1 H Eos # (Auto) 0.1 Baso # (Auto) 0.0 WBC Differential . Differential Comment Auto diff final PT 10.8 INR 1.1 APTT 25.2 Sodium 139 Potassium 3.8 Chloride 107 Carbon Dioxide 22.1 Anion Gap 10 BUN 16 Creatinine 1.01 Estimated GFR 76 L Random Glucose 113 H Calcium 8.7 Magnesium 1.8 Total Bilirubin 1.0 AST 18 ALT 45 Alkaline Phosphatase 49 Total Protein 8.0 Albumin 3.9 Lipase 78 Urine Color Urine Clarity Urine pH Ur Specific [place] Urine Protein Urine Glucose (UA) Urine Ketones Urine Occult Blood Urine Nitrate Urine Bilirubin Urine Urobilinogen Ur Leukocyte Esterase Urine RBC Urine WBC Hyaline Casts Urine Mucus Micro UA Comment Ur Microscopic Review Urine Culture Comments 04/01/18 04/02/18 04/02/18 19:35 06:25 06:25 WBC 5.0 RBC 3.95 L Hgb 13.7 D Hct 40.0 MCV 101.2 H MCH 34.8 H MCHC 34.3 RDW 12.7 Plt Count 278 MPV 8.4 Neut % (Auto) 67.4 Lymph % (Auto) 18.6 [place] % (Auto) 12.3 H Eos % (Auto) 1.5 Baso % (Auto) 0.2 Neut # (Auto) 3.4 Lymph # (Auto) 0.9 L [place] # (Auto) 0.6 Eos # (Auto) 0.1 Baso # (Auto) 0.0 WBC Differential . Differential Comment Auto diff final PT INR APTT Sodium 142 Potassium 4.1 Chloride 110 H Carbon Dioxide 25.1 Anion Gap 7 BUN 12 Creatinine 0.77 Estimated GFR Greater than 89 Random Glucose 103 Calcium 7.9 L D Magnesium Total Bilirubin AST ALT Alkaline Phosphatase Total Protein Albumin Lipase Urine Color [place] Urine Clarity Hazy H Urine pH 5.0 Ur Specific [place] 1.034 Urine Protein 30 H Urine Glucose (UA) Negative Urine Ketones 80 or greater H Urine Occult Blood Negative Urine Nitrate Negative Urine Bilirubin Negative Urine Urobilinogen 4 or greater Ur Leukocyte Esterase Negative Urine RBC 1 Urine WBC 4 Hyaline Casts 1 Urine Mucus Many H Micro UA Comment Culture not ind Ur Microscopic Review Not Reportable Urine Culture Comments Culture not ind - Imaging Impressions Abdomen/Pelvis CT 04/01/18 18:18 CONCLUSION: 1. Distal small bowel obstruction just proximal to the terminal ileum without obstructing mass or lesion observed. No free air or free fluid. 2. Enlarged prostate. 3. Prior splenomegaly with numerous small splenules remaining. Abdomen X-Ray 04/02/18 00:00 CONCLUSION: There are moderately distended loops of small bowel with air-fluid levels throughout the mid abdomen. This finding can be seen with either diffuse adynamic ileus versus a distal partial small bowel obstruction. Assessment and Plan - Plan 57-year-old male with no medical history surgical history includes a splenectomy and a cholecystectomy and a small bowel obstruction in 2011 presented to the ED with complaints of abdominal pain. Small bowel obstruction, acute likely 2/[address] reviewed and shows a distal small bowel obstruction just proximal to the terminal ileum without mass, and enlarged prostate. -Cont IVF -General surgery following, appreciate recommendations. Trial clear liquid diet , patient currently tolerating. No surgical intervention at this time. -KUB shows moderately distended loops of small bowel with air-fluid levels throughout the mid abdomen consistent with either diffuse adynamic ileus versus distal partial small bowel obstruction. -Educated patient on fibrous diet and hydration -Pain management with IV morphine -Antiemetics as needed DVT Prophylaxis: SCDs Code Status: Full Discussed Condition With: patient, nursing staff, Dr. Ferris Discharge Planning: Not ready for discharge
[2018-04-03] MEDS: Sod Chloride 0.9% Inj 1,000 ML IV.CONT SCH ×2 (04:19→13:52)
[2018-04-03 04:48] LABS: Baso % (Auto) 0.3 % (0.0-2.0); Eos % (Auto) 0.8 % (0.0-4.0); Hematocrit 38.9 % (39.0-51.0); Hemoglobin 13.6 gm/dL (13.0-17.0); Lymph # (Auto) 1.4 th/mm3 (1.0-4.8); Lymph % (Auto) 28.3 % (9.0-44.0); Mean Corpuscular HGB Conc 35.1 % (32.0-36.0); Mean Corpuscular Hemoglobin 34.8 pg (27.0-34.0); Mean Platelet Volume 8.2 fL (7.0-11.0); Mono # (Auto) 0.5 th/mm3 (0.0-0.9); Neut # (Auto) 2.9 th/mm3 (1.8-7.7); Neut % (Auto) 60.6 % (16.0-70.0); Platelet Count 293 th/mm3 (150-450); Red Blood Count 3.93 mil/mm3 (4.50-5.90); Red Cell Distribution Width 13.1 % (11.6-17.2); White Blood Count 4.8 th/mm3 (4.0-11.0)
[2018-04-03 05:18] LABS: Anion Gap 6 meq/L (5-15); Blood Urea Nitrogen 7 mg/dL (7-18); Calcium 8.1 mg/dL (8.5-10.1); Carbon Dioxide 23.5 meq/L (21.0-32.0); Chloride 110 meq/L (98-107); Glomerular Filtration Rate Greater Than 89 mL/min (>89); Glucose,Random 89 mg/dL (74-106); Sodium 139 meq/L (136-145)
[2018-04-03 05:19] LABS: Potassium 5.4 meq/L (3.5-5.1)
--- NOTE | 2018-04-03 10:09 | P.PN ---
Subjective Interval history: Feels much better today. No more nausea no vomiting. He had a bowel movement later today in the morning. very supportive of bedside. Patient and with multiple questions all answered to best of my ability. Patient feels comfortable to have diet advanced. Will advance to full liquid diet if patient able to tolerate food he might be discharged later today if cleared also by general surgery. Discussed plan with family and the patient agrees. Patient says he wants to hold on surgery as much as possible. Discussed dietary changes and lifestyle modifications as well. Patient is very reliable and follows with PCP and consultants as outpatient. Physical Exam Vital signs: Vital Signs 04/02/18 11:59 04/02/18 16:31 04/02/18 20:00 Temperature 98.5 F 97.8 F 98.3 F Pulse Rate 90 75 83 Respiratory Rate 18 20 19 Blood Pressure 116/56 L 112/59 L 122/65 Pulse Oximetry 95 96 99 04/02/18 23:23 04/03/18 04:00 04/03/18 07:46 Temperature 98.6 F 98.6 F 98.5 F Pulse Rate 78 72 71 Respiratory Rate 18 19 18 Blood Pressure 117/70 119/60 121/59 L Pulse Oximetry 91 L 90 L 94 L Intake & Output 04/02/18 04/03/18 04/03/18 18:59 06:59 18:59 Intake Total 1700 / 1700 240 / 240 Balance 1700 / 1700 240 / 240 Weight 78.01 kg Intake: IV 1700 / 1700 NS Inj 1,000 ML @ 100 mls/hr IV 1700 / 1700 .CONT .Q10H BEV Rx#:[id number] Oral 240 / 240 Other: # Voids 3 2 Narrative: GENERAL: Well-developed well-nourished male patient in no acute distress. Awake and alert. is at the bedside. CARDIOVASCULAR: Regular rate and rhythm. RESPIRATORY: No accessory muscle use. Clear to auscultation. Breath sounds equal bilaterally. GASTROINTESTINAL: Abdomen soft, non-tender, nondistended. +BS. MUSCULOSKELETAL: Extremities without clubbing, cyanosis, or edema. No obvious deformities. NEUROLOGICAL: Awake and alert. No obvious cranial nerve deficits. Motor grossly within normal limits. Able to move all extremities spontaneously. Normal speech. PSYCHIATRIC: Appropriate mood and affect; insight and judgment normal. Results - Labs CBC & Chem 7: 04/03/18 04:19 04/03/18 04:19 Laboratory Results - last 24 hr 04/03/18 04/03/18 04:19 04:19 WBC 4.8 RBC 3.93 L Hgb 13.6 Hct 38.9 L MCV 99.0 MCH 34.8 H MCHC 35.1 RDW 13.1 Plt Count 293 MPV 8.2 Neut % (Auto) 60.6 Lymph % (Auto) 28.3 [place] % (Auto) 10.0 H Eos % (Auto) 0.8 Baso % (Auto) 0.3 Neut # (Auto) 2.9 Lymph # (Auto) 1.4 [place] # (Auto) 0.5 Eos # (Auto) 0.0 Baso # (Auto) 0.0 WBC Differential . Differential Comment Auto diff final Sodium 139 Potassium 5.4 H D Chloride 110 H Carbon Dioxide 23.5 Anion Gap 6 BUN 7 Creatinine 0.77 Estimated GFR Greater than 89 Random Glucose 89 Calcium 8.1 L - Imaging Impressions Abdomen X-Ray 04/02/18 00:00 CONCLUSION: There are moderately distended loops of small bowel with air-fluid levels throughout the mid abdomen. This finding can be seen with either diffuse adynamic ileus versus a distal partial small bowel obstruction. Assessment and Plan - Plan 57-year-old male with no medical history surgical history includes a splenectomy and a cholecystectomy and a small bowel obstruction in 2011 presented to the ED with complaints of abdominal pain. Small bowel obstruction, acute likely 2/[address] reviewed and shows a distal small bowel obstruction just proximal to the terminal ileum without mass, and enlarged prostate. -Cont IVF. Encourage p.o. intake and hydration -General surgery following, appreciate recommendations. Trial clear liquid diet , patient currently tolerating. No surgical intervention at this time. -KUB reviewed shows moderately distended loops of small bowel with air-fluid levels throughout the mid abdomen consistent with either diffuse adynamic ileus versus distal partial small bowel obstruction. -Patient educated on fibrous diet and hydration -Pain management with IV morphine -Antiemetics as needed -The patient would like to hold on surgery for as long as he can DVT Prophylaxis: SCDs Code Status: Full Discussed Condition With: patient, family at bedside, nurse, case management Discharge Planning: Patient improved significantly had a bowel movement. Diet advanced to full liquid diet. If tolerates diet discharge later today if also cleared by general surgery.
[2018-04-03] MEDS: Sodium Chloride 0.9% 2 ML Flush BID IV.FLUSH SCH (10:16)
--- NOTE | 2018-04-03 10:25 | P.DS ---
Date of admission: 04/01/18 20:20 Primary care physician: Tom Foss DO Brief History from admission: 57-year-old male with no medical history surgical history includes a splenectomy and a cholecystectomy and a small bowel obstruction in 2011 presented to the ED with complaints of abdominal pain. Patient states for the last 2 days he has had sharp, stabbing, constant abdominal pain throughout his whole abdomen with associated decreased appetite. He denies any associated nausea or vomiting or radiation pain. He states the pain is better with morphine. He states he had a very small bowel movement today but prior to today he has had liquid stools. He has had a bowel small bowel obstruction in the past that included intervention for lysis of adhesions. He also states he has not been drinking water lately and complains of very dark urine. DS: Diagnosis - Discharge Diagnosis (1) Partial small bowel obstruction Status: Acute (2) Small bowel obstruction Status: Acute DS: Medications - Discharge Medications Prescriptions: promethazine [Phenergan] 25 mg IM Q6H PRN #30 ml PRN Reason: nausea/vomiting DS: Summary Hospital Course: 57-year-old male with no medical history surgical history includes a splenectomy and a cholecystectomy and a small bowel obstruction in 2011 presented to the ED with complaints of abdominal pain. Patient wants to hold on any surgical intervention. Patient improved significantly had a bowel movement. Diet advanced to full liquid diet. Dietary modifications discussed with the patient at length. Discharged home in stable condition to follow-up with PCP and consultants as outpatient. Small bowel obstruction, acute likely 2/[address] reviewed and shows a distal small bowel obstruction just proximal to the terminal ileum without mass, and enlarged prostate. -Cont IVF. Encourage p.o. intake and hydration -General surgery following, appreciate recommendations. No surgical intervention at this time. Tolerates full liquid diet. -KUB reviewed shows moderately distended loops of small bowel with air-fluid levels throughout the mid abdomen consistent with either diffuse adynamic ileus versus distal partial small bowel obstruction. -Patient educated on fibrous diet and hydration -Pain management with IV morphine however pain improved significantly and the patient did not take any medications for 24 hours -Antiemetics as needed -The patient would like to hold on surgery for as long as he can - Time Spent with Patient Total time spent providing and/or coordinating discharge services: Greater than 30 minutes - Quality: VTE Deep Vein Thrombosis/Pulmonary Embolism Present on Admission: No Exam Vital signs: Vital Signs 04/02/18 11:59 04/02/18 16:31 04/02/18 20:00 Temperature 98.5 F 97.8 F 98.3 F Pulse Rate 90 75 83 Respiratory Rate 18 20 19 Blood Pressure 116/56 L 112/59 L 122/65 Pulse Oximetry 95 96 99 04/02/18 23:23 04/03/18 04:00 04/03/18 07:46 Temperature 98.6 F 98.6 F 98.5 F Pulse Rate 78 72 71 Respiratory Rate 18 19 18 Blood Pressure 117/70 119/60 121/59 L Pulse Oximetry 91 L 90 L 94 L Intake & Output 04/02/18 04/03/18 04/03/18 18:59 06:59 18:59 Intake Total 1700 / 1700 240 / 240 Balance 1700 / 1700 240 / 240 Weight 78.01 kg Intake: IV 1700 / 1700 NS Inj 1,000 ML @ 100 mls/hr IV 1700 / 1700 .CONT .Q10H BEV Rx#:[id number] Oral 240 / 240 Other: # Voids 3 2 Narrative: GENERAL: Well-developed well-nourished male patient in no acute distress. Awake and alert. is at the bedside. CARDIOVASCULAR: Regular rate and rhythm. RESPIRATORY: No accessory muscle use. Clear to auscultation. Breath sounds equal bilaterally. GASTROINTESTINAL: Abdomen soft, non-tender, nondistended. +BS. MUSCULOSKELETAL: Extremities without clubbing, cyanosis, or edema. No obvious deformities. NEUROLOGICAL: Awake and alert. No obvious cranial nerve deficits. Motor grossly within normal limits. Able to move all extremities spontaneously. Normal speech. PSYCHIATRIC: Appropriate mood and affect; insight and judgment normal. Results Procedures completed during hospitalization: none Labs on day of discharge: Labs from last 24 hours 04/03/18 04/03/18 04:19 04:19 WBC 4.8 RBC 3.93 L Hgb 13.6 Hct 38.9 L MCV 99.0 MCH 34.8 H MCHC 35.1 RDW 13.1 Plt Count 293 MPV 8.2 Neut % (Auto) 60.6 Lymph % (Auto) 28.3 [place] % (Auto) 10.0 H Eos % (Auto) 0.8 Baso % (Auto) 0.3 Neut # (Auto) 2.9 Lymph # (Auto) 1.4 [place] # (Auto) 0.5 Eos # (Auto) 0.0 Baso # (Auto) 0.0 WBC Differential . Differential Comment Auto diff final Sodium 139 Potassium 5.4 H D Chloride 110 H Carbon Dioxide 23.5 Anion Gap 6 BUN 7 Creatinine 0.77 Estimated GFR Greater than 89 Random Glucose 89 Calcium 8.1 L - Impressions ITS Impressions Abdomen/Pelvis CT 04/01/18 18:18 CONCLUSION: 1. Distal small bowel obstruction just proximal to the terminal ileum without obstructing mass or lesion observed. No free air or free fluid. 2. Enlarged prostate. 3. Prior splenomegaly with numerous small splenules remaining. Abdomen X-Ray 04/02/18 00:00 CONCLUSION: There are moderately distended loops of small bowel with air-fluid levels throughout the mid abdomen. This finding can be seen with either diffuse adynamic ileus versus a distal partial small bowel obstruction. Discharge Plan - Discharge Disposition Patient Disposition: 01 Discharge Home - Discharge Condition Condition: Stable - Discharge Order Discharge Orders: Discharge Order (Routine); Ordered 04/03/18 Ordered By: Siena Ferris - Discharge Details Anticipated Discharge Date: 04/03/18 - Physicians Team Primary Care Provider: Tom Foss Attending Provider: Siena Ferris Other Providers: Roland Alvarez MD
[2018-04-03 12:19] VITALS: BP 122/72; PULSE 56; RESP 16; TEMP 97.9; O2SAT 97
== END 2018-04-03 15:40 | disposition home or self-care (01) ==
LOC: NEPE 17:50 → NEDA 20:20 → NEPFCDU 04-02 00:27 → NEDH 04-03 09:59 → NEPFCDU 04-03 10:00
PROVIDERS: ADMIT Hospitalist; ATTEND Hospitalist